=== PATIENT | male | born 1975 | race Caucasian/White ===

== ENCOUNTER 2021-11-27 11:58 | Emergency (ER) | payer OTHER ==
[~2021-11-27] VITALS: Ht 170.2 cm; Wt 74.4 kg
--- NOTE | 2021-11-27 12:05 | NUR ---
TO ER BED 11, [address] C/O HI "HURT ANYONE WHO DISRESPECTS ME", ALSO HEARING VOICES "BAD SHIT", D/C'd YESTERDAY FR [facility]EDARS SAME REASON, AAOX3, BREATHING EVEN AND NON LABORED, CALM.
[2021-11-27] MEDS ORDERED: OLANZAPINE 5 MG TABLET PO ONE (12:30)
[2021-11-27] MEDS ORDERED: OLANZAPINE 5 MG TABLET ONE (12:33)
--- NOTE | 2021-11-27 12:40 | NUR ---
REQUESTED CLINICAL PAPERS FROM [facility], NEED TO FAX AUTHORIZATION REQUEST
--- NOTE | 2021-11-27 13:33 | NUR ---
AUTHORIZATION TO REQUEST FOR MEDICAL INFORMATION SENT
--- NOTE | 2021-11-27 14:16 | NUR ---
GRETCHEN BAI [phone] LEFT VM
--- NOTE | 2021-11-27 14:59 | NUR ---
CALLED [facility] AGAIN [phone] VALERY MILLER WOULD LIKE PT TO BE EVALUATED.
--- NOTE | 2021-11-27 15:16 | NUR ---
cheko collins aware and will be coming for psych eval
--- NOTE | 2021-11-27 15:21 | NUR ---
PATIENT REQUESTED TO USE THE RESTROOM, CALLED [facility] TO HELP
--- NOTE | 2021-11-27 17:03 | NUR ---
SEEN BY [facility]
[2021-11-27] MEDS ORDERED: QUETIAPINE FUMARATE 25 MG TABLET PO SCH (18:00)
[2021-11-27] MEDS ORDERED: QUETIAPINE FUMARATE 25 MG TABLET ONE (18:42)
--- NOTE | 2021-11-27 18:45 | NUR ---
COVID SWAB DONE AND SENT TO LAB
--- NOTE | 2021-11-27 20:18 | NUR ---
RECEIVED REPORT FROM [facility] FOR [facility]
--- NOTE | 2021-11-27 20:19 | NUR ---
PT IS RESTING COMFORTABLY IN BED, PT DENIES ANY PAIN AT THIS TIME. FOOD AND WATER PROVIDED. URINAL AT BEDSIDE. WILL CONTINUE TO MONITOR
--- NOTE | 2021-11-27 20:47 | NUR ---
RE-FAXED CLONICALS TO [facility]
--- NOTE | 2021-11-28 03:30 | NUR ---
RE-FAXED CLONICALS TO [facility]
--- NOTE | 2021-11-28 07:25 | NUR ---
Patient in bed, calm in no distess. Alert and oriented x 4, verbally responsive and able to make needs known. Sitter at bedside for constant monitoring. Kept comfortable, will continue to monitor accordingly.
--- NOTE | 2021-11-28 07:45 | NUR ---
Breakfast ordered to patient.
--- NOTE | 2021-11-28 07:55 | NUR ---
Foot tray given to patient.
--- NOTE | 2021-11-28 08:19 | NUR ---
called [facility] to F/U on acceptance, staff are still in report, will call back later
[2021-11-28 08:58] VITALS: BP 135/81
--- NOTE | 2021-11-28 08:59 | NUR ---
Patient given written and verbal discharge instructions. Patient verbalizes understanding of instructions. Patient is ambulatory with steady gait. Refuses offer of [facility]. Patient given list of available shelters in surrounding area. Left in stable condition. Denies SI/HI.
== END 2021-11-28 08:58 | disposition home or self-care (01) ==
LOC: ER 12:05
DX: R45.850 Homicidal ideations (principal); F15.10 Other stimulant abuse, uncomplicated; F17.210 Nicotine dependence, cigarettes, uncomplicated; R45.851 Suicidal ideations; Z20.822 Contact with and (suspected) exposure to COVID-19
CPT/HCPCS: 87426; 99285; 99406; C9803

== ENCOUNTER 2021-12-14 20:16 | Emergency (ER) | payer OTHER ==
[~2021-12-14] VITALS: Ht 170.2 cm; Wt 76.7 kg
--- NOTE | 2021-12-14 20:55 | NUR ---
[facility] WITH PLAN TO JUMP OFF BRIDGE -HI REQUESTING VOL PSYCH TO [facility]. PATIENT BELONGINGS TAKEN AND PLACED IN LOCKER. PATIENT IN GOWN IN BED 18 AWAITING MD STAPLES.
--- NOTE | 2021-12-14 21:00 | NUR ---
ER CREATIVE PERFUMER AT BEDSIDE
[2021-12-14 21:16] LABS: BASOPHILS % (AUTO) 0.4 % (0.0-2.0); EOSINOPHILS % (AUTO) 1.4 % (0.0-6.0); HEMATOCRIT 45 % (39-51); HEMOGLOBIN 15.4 g/dL (13.5-17.5); LYMPHOCYTES # (AUTO) 1.9 K/uL (0.8-4.8); LYMPHOCYTES % (AUTO) 19.3 % (20.0-44.0); MEAN CORPUSCULAR HGB CONC 34 g/dl (31.0-36.0); MEAN CORPUSCULAR VOLUME 90 fL (80-96); MONOCYTES # (AUTO) 0.9 K/uL (0.1-1.30); MONOCYTES % (AUTO) 8.5 % (2.0-12.0); NEUTROPHILS # (AUTO) 7.1 K/uL (1.8-8.9); NEUTROPHILS % (AUTO) 70.4 % (43.0-81.0); PLATELET COUNT (AUTO) 343 K/uL (150-450); RED BLOOD CELL COUNT(AUTO) 5.01 MIL/uL (4.5-6.0); WHITE BLOOD COUNT (AUTO) 10.1 K/uL (4.3-11.0)
--- NOTE | 2021-12-14 21:30 | NUR ---
COVID SWAB DONE AND SENT TO LAB
[2021-12-14] MEDS ORDERED: OLANZAPINE 5 MG TABLET ONE (21:34)
[2021-12-14 21:37] LABS: ALANINE AMINOTRANSFERASE 27 U/L (12-78); ALBUMIN 4.5 g/dL (3.4-5.0); ALCOHOL, BLOOD < 3 mg/dL (0-0); ALKALINE PHOSPHATASE 69 U/L (46-116); ASPARTATE AMINOTRANSFERASE 28 U/L (15-37); BILIRUBIN,DIRECT 0.2 mg/dL (0.0-0.2); BILIRUBIN,TOTAL 0.8 mg/dL (0.2-1.0); CALCIUM, SERUM 9.6 mg/dL (8.5-10.1); CARBON DIOXIDE 28 mmol/L (21-32); CHLORIDE 96 mmol/L (98-107); CREATININE 0.9 mg/dL (0.6-1.3); GLUCOSE 86 mg/dL (74-106); POTASSIUM 4.1 mmol/L (3.5-5.1); SODIUM SERUM 132 mmol/L (136-145); TOTAL PROTEIN, SERUM 8.9 g/dL (6.4-8.2); UREA NITROGEN, BLOOD 17 mg/dL (7-18)
[2021-12-14 21:38] LABS: ACETAMINOPHEN < 0 ug/ml (10-30)
[2021-12-14] MEDS ORDERED: OLANZAPINE 5 MG TABLET PO ONE (22:00)
--- NOTE | 2021-12-14 23:42 | NUR ---
urine collected and sent to lab
[2021-12-15 00:14] VITALS: BP 129/97
[2021-12-15 00:25] LABS: BILIRUBIN,URINE NEGATIVE (NEGATIVE); COLOR,URINE YELLOW (YELLOW); LEUKOCYTE ESTERASE ,URINE NEGATIVE (NEGATIVE); NITRITE, URINE NEGATIVE (NEGATIVE); PH,URINE 5.5 (5.0-8.0); PROTEIN,URINE NEGATIVE (NEGATIVE); UGLUCOSE NEGATIVE (NEGATIVE); UROBILINOGEN,URINE 0.2 EU/dL (0.2)
--- NOTE | 2021-12-15 04:07 | NUR ---
ACCEPTED AT [facility] ROOM 210-A REPORT [phone] EXT [phone]
--- NOTE | 2021-12-15 04:25 | NUR ---
CALLED [facility] FOR TRANSPORTATION TO [facility] ETA - 20 MIN.
--- NOTE | 2021-12-15 04:43 | NUR ---
report given to arturo ramon.
--- NOTE | 2021-12-15 04:50 | NUR ---
[facility] AT BEDSIDE FOR TRANSPORT.
[2021-12-15 10:19] LABS: BACTERIA,URINE FEW /HPF (None Seen); CALCIUM CARBONATE CRYSTALS,UR None Seen /HPF (None Seen); CALCIUM OXALATE CRYSTALS,UR None Seen /HPF (None Seen); CALCIUM PHOSPHATE CRYSTALS,UR None Seen /HPF (None Seen); COARSE GRANULAR CASTS,URINE None Seen /LPF (None Seen); CYSTINE CRYSTALS,URINE None Seen /HPF (None Seen); FATTY CASTS,URINE None Seen /LPF (None Seen); FINE GRANULAR CASTS,URINE None Seen /LPF (None Seen); HYALINE CASTS, URINE None Seen /LPF (None Seen); MUCUS,URINE None Seen /LPF (None Seen); OTHER CRYSTALS,URINE None Seen /HPF (None Seen); RED BLOOD CELL CASTS,URINE None Seen /LPF (None Seen); SPERM,URINE None Seen /HPF (None Seen); SQUAMOUS EPITHELIAL CELL,UR RARE /HPF (None Seen); TRICHOMONAS,URINE None Seen /HPF (None Seen); TRIPLE PHOSPHATE CRYSTAL,UR None Seen /HPF (None Seen); TYROSINE CRYSTAL,URINE None seen /HPF (None Seen); URIC ACID CRYSTALS,URINE None Seen /HPF (None Seen); URINE AMORPHOUS PHOSPHATES None Seen /HPF (None Seen); URINE AMORPHOUS URATE None Seen /HPF (None Seen); WAXY CASTS,URINE None Seen /LPF (None Seen); WBC,URINE 0-2 /HPF (0-3); YEAST,URINE None Seen /HPF (None Seen)
== END 2021-12-15 04:50 ==
LOC: ER 20:20
DX: R45.851 Suicidal ideations (principal); Z59.00 Homelessness unspecified; F17.210 Nicotine dependence, cigarettes, uncomplicated; F29 Unspecified psychosis not due to a substance or known physiological condition; F15.10 Other stimulant abuse, uncomplicated; F10.10 Alcohol abuse, uncomplicated; Y90.0 Blood alcohol level of less than 20 mg/100 ml; Z20.822 Contact with and (suspected) exposure to COVID-19
CPT/HCPCS: 36415; 80048; 80076; 80143; 80307; 80320; 81001; 85025; 87426; 99285; C9803; G0480

== ENCOUNTER 2024-01-10 15:24 | Emergency (ER) | payer OTHER ==
[~2024-01-10] VITALS: Ht 170.2 cm; Wt 77.1 kg
[2024-01-10 16:24] LABS: BASOPHILS % (AUTO) 0.2 % (0.0-2.0); EOSINOPHILS % (AUTO) 0.4 % (0.0-6.0); HEMATOCRIT 43 % (39-51); HEMOGLOBIN 14.8 g/dL (13.5-17.5); LYMPHOCYTES # (AUTO) 0.9 K/uL (0.8-4.8); LYMPHOCYTES % (AUTO) 10.3 % (20.0-44.0); MEAN CORPUSCULAR HEMOGLOBIN 29 PG (26.0-33.0); MEAN CORPUSCULAR HGB CONC 34 g/dl (31.0-36.0); MEAN CORPUSCULAR VOLUME 84 fL (80-96); MONOCYTES # (AUTO) 0.8 K/uL (0.1-1.30); MONOCYTES % (AUTO) 8.7 % (2.0-12.0); NEUTROPHILS # (AUTO) 7.3 K/uL (1.8-8.9); NEUTROPHILS % (AUTO) 80.4 % (43.0-81.0); PLATELET COUNT (AUTO) 266 K/uL (150-450); RED BLOOD CELL COUNT(AUTO) 5.14 MIL/uL (4.5-6.0); RED CELL DISTRIBUTION WIDTH 14.3 % (11.5-15.0)
[2024-01-10 16:37] LABS: APPEARANCE,URINE Clear (CLEAR); BILIRUBIN,URINE Negative (NEGATIVE); BLOOD, URINE Moderate Ery/uL (NEGATIVE); COLOR,URINE YELLOW (YELLOW); KETONES,URINE Negative (NEGATIVE); LEUKOCYTE ESTERASE ,URINE Negative (NEGATIVE); NITRITE, URINE Negative (NEGATIVE); PH,URINE 6.5 (5.0-8.0); PROTEIN,URINE Negative (NEGATIVE); UGLUCOSE Negative (NEGATIVE)
[2024-01-10 16:39] LABS: CALCIUM, SERUM 8.8 mg/dL (8.5-10.1); CARBON DIOXIDE 29 mmol/L (21-32); CHLORIDE 97 mmol/L (98-107); CREATININE 0.8 mg/dL (0.6-1.3); GLUCOSE 97 mg/dL (74-106); POTASSIUM 4.2 mmol/L (3.5-5.1); SODIUM SERUM 133 mmol/L (136-145); UREA NITROGEN, BLOOD 9 mg/dL (7-18)
[2024-01-10 16:47] LABS: AMPHETAMINE, URINE POSITIVE (NEGATIVE); BARBITURATE, URINE NEGATIVE (NEGATIVE); BENZODIAZEPINE, URINE NEGATIVE (NEGATIVE); CANNABINOID, URINE NEGATIVE (NEGATIVE); COCCAINE, URINE NEGATIVE (NEGATIVE); OPIATE, URINE NEGATIVE (NEGATIVE); PHENCYCLIDINE SCREEN,URINE NEGATIVE (NEGATIVE)
[2024-01-10 16:48] LABS: ALANINE AMINOTRANSFERASE 28 U/L (12-78); ALBUMIN 3.9 g/dL (3.4-5.0); ALCOHOL, BLOOD < 3 mg/dL (0-10); ALKALINE PHOSPHATASE 76 U/L (46-116); ASPARTATE AMINOTRANSFERASE 32 U/L (15-37); BILIRUBIN,DIRECT 0.2 mg/dL (0.0-0.2); BILIRUBIN,TOTAL 0.7 mg/dL (0.2-1.0); TOTAL PROTEIN, SERUM 8.3 g/dL (6.4-8.2)
[2024-01-10 16:51] LABS: ACETAMINOPHEN 0 ug/ml (10-30); SALICYLATE 1.5 mg/dL (2.8-20.0)
[2024-01-10 16:56] LABS: ADD URINE CULTURE NO; BACTERIA,URINE 1+ /HPF (None Seen); WBC,URINE 0-2 /HPF (0-3)
[2024-01-10 16:57] LABS: SQUAMOUS EPITHELIAL CELL,UR Few /HPF (None Seen)
[2024-01-10 20:30] VITALS: BP 147/78; TEMP 98.2; O2SAT 100
[2024-01-10] MEDS ORDERED: ACETAMINOPHEN 325 MG TABLET ONE (20:30)
[2024-01-10] MEDS: ACETAMINOPHEN 325 MG TABLET PO ONE (20:36)
== END 2024-01-10 20:15 | disposition left against medical advice (07) ==
LOC: ER 15:31
DX: F19.10 Other psychoactive substance abuse, uncomplicated (principal); F41.9 Anxiety disorder, unspecified; Z20.822 Contact with and (suspected) exposure to COVID-19
CPT/HCPCS: 36415; 80048-TC; 80076-TC; 81001; 85025-TC; G0480

== ENCOUNTER 2024-01-27 10:35 | Emergency (ER) | payer OTHER ==
[~2024-01-27] VITALS: Ht 167.6 cm; Wt 68.0 kg
[2024-01-27 12:21] LABS: BASOPHILS % (AUTO) 0.4 % (0.0-2.0); CALCIUM, SERUM 9.4 mg/dL (8.5-10.1); CARBON DIOXIDE 28 mmol/L (21-32); CHLORIDE 97 mmol/L (98-107); CREATININE 0.9 mg/dL (0.6-1.3); EOSINOPHILS # (AUTO) 0.2 K/uL (0.0-0.7); EOSINOPHILS % (AUTO) 2.3 % (0.0-6.0); GLUCOSE 102 mg/dL (74-106); HEMATOCRIT 43 % (39-51); HEMOGLOBIN 14.9 g/dL (13.5-17.5); LYMPHOCYTES # (AUTO) 1.6 K/uL (0.8-4.8); LYMPHOCYTES % (AUTO) 22.3 % (20.0-44.0); MEAN CORPUSCULAR HEMOGLOBIN 29 PG (26.0-33.0); MEAN CORPUSCULAR HGB CONC 35 g/dl (31.0-36.0); MEAN CORPUSCULAR VOLUME 84 fL (80-96); MONOCYTES % (AUTO) 13.4 % (2.0-12.0); NEUTROPHILS # (AUTO) 4.5 K/uL (1.8-8.9); NEUTROPHILS % (AUTO) 61.6 % (43.0-81.0); PLATELET COUNT (AUTO) 304 K/uL (150-450); POTASSIUM 3.9 mmol/L (3.5-5.1); RED BLOOD CELL COUNT(AUTO) 5.12 MIL/uL (4.5-6.0); RED CELL DISTRIBUTION WIDTH 14.1 % (11.5-15.0); SODIUM SERUM 133 mmol/L (136-145); UREA NITROGEN, BLOOD 11 mg/dL (7-18); WHITE BLOOD COUNT (AUTO) 7.3 K/uL (4.3-11.0)
[2024-01-27 12:27] LABS: ALANINE AMINOTRANSFERASE 24 U/L (12-78); ALBUMIN 3.5 g/dL (3.4-5.0); ALCOHOL, BLOOD < 3 mg/dL (0-10); ALKALINE PHOSPHATASE 100 U/L (46-116); ASPARTATE AMINOTRANSFERASE 19 U/L (15-37); BILIRUBIN,DIRECT 0.2 mg/dL (0.0-0.2); BILIRUBIN,TOTAL 0.5 mg/dL (0.2-1.0)
[2024-01-27 12:31] LABS: ACETAMINOPHEN <10 ug/ml (10-30); SALICYLATE 1.8 mg/dL (2.8-20.0)
[2024-01-27 15:49] VITALS: BP 132/66; TEMP 98.4; O2SAT 100
== END 2024-01-27 15:49 | disposition home or self-care (01) ==
LOC: ER 10:37
DX: H10.213 Acute toxic conjunctivitis, bilateral (principal); T65.893A Toxic effect of other specified substances, assault, initial encounter; F41.9 Anxiety disorder, unspecified; F17.210 Nicotine dependence, cigarettes, uncomplicated; Z20.822 Contact with and (suspected) exposure to COVID-19; Y92.89 Other specified places as the place of occurrence of the external cause
CPT/HCPCS: 36415; 80048-TC; 80076-TC; 85025-TC; G0480